=== PATIENT | male | born 1965 | race Caucasian/White ===

== ENCOUNTER 2020-01-11 13:33 | Emergency (ER) | payer OTHER, BC ==
[2020-01-11 13:39] VITALS: RESP 16; TEMP 98.2
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
--- NOTE | 2020-01-11 14:57 | XR ---
EXAMINATION TYPE: XR knee complete LT DATE OF EXAM: 01/11/2020 COMPARISON: NONE HISTORY: Pain TECHNIQUE: 3 views FINDINGS: There is spurring on the superior patella. I see no fracture nor dislocation. There is mild spurring at the tibial tubercle. There is no sign of knee joint effusion. Joint spaces are normal. IMPRESSION: Minor spurring. No fracture seen.
--- NOTE | 2020-01-11 14:59 | XR ---
EXAMINATION TYPE: XR tibia fibula LT DATE OF EXAM: 01/11/2020 COMPARISON: NONE HISTORY: Pain TECHNIQUE: 2 views FINDINGS: Tibia and fibula appear intact. I see no fracture nor dislocation. There is plantar and Ach illes calcaneal spurring. IMPRESSION: No fracture seen.
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
[2020-01-11 15:16] VITALS: BP 140/95; PULSE 71
== END 2020-01-11 15:21 | disposition home or self-care (01) ==
LOC: EC 13:33
DX: S92.422A Displaced fracture of distal phalanx of left great toe, initial encounter for closed fracture (principal); S80.212A Abrasion, left knee, initial encounter; Z88.6 Allergy status to analgesic agent; Z91.030 Bee allergy status; W23.0XXA Caught, crushed, jammed, or pinched between moving objects, initial encounter
CPT/HCPCS: 70450; 72125; 99284